=== PATIENT | male | born 1990 | race Caucasian/White ===

== ENCOUNTER 2017-01-11 14:28 | Emergency (ER) | payer OTHER ==
[~2017-01-11] VITALS: Ht 175.3 cm; Wt 100.0 kg
[2017-01-11 14:36] VITALS: TEMP 36.8; Ht 175.3 cm; Wt 100.0 kg
[2017-01-11] MEDS ORDERED: MULT-106 PO (15:04)
[2017-01-11] MEDS ORDERED: TRAZ100T29 PO (15:04)
[2017-01-11] MEDS ORDERED: SERT50TA PO (15:04)
[2017-01-11] MEDS ORDERED: HYDR-5688 PO (15:06)
[2017-01-11 15:33] VITALS: BP 129/69; PULSE 68; O2SAT 96
--- NOTE | 2017-01-12 08:35 | EMERGENCY ROOM VISIT NOTE ---
ED Visit Note First contact with patient: 14:41 Chief Complaint: I burned my left arm at work. History of Present Illness: Mr. Henriquez is a 26-year-old white male who ambulates into the ED complaining of a burn injury to the anterior aspect of the proximal left forearm. Patient reports 3 days ago he sustained a burn injury to the left forearm from hot oil from a fire strainer at work. He is expressing concerns about a possible infection. Currently he describes his pain as a burning sensation. He rates his discomfort 6/10. The pain is nonradiating. The pain worsens with palpation. He has not identified any alleviating factors related to the pain. He has been using [id number] medications without relief of his discomfort. He does report he has been cleaning his wound and applying antibiotic ointment. He denies any fevers, chills, sweats, increasing redness/swelling around the wound, red streaking, puslike drainage, shortness of breath, decreased appetite , nausea, vomiting, left upper extremity weakness/numbness/tingling. Review of Systems: As noted above in history of present illness. 5 body systems were reviewed and found to be negative as noted above. Past Medical History: Unspecified stomach disorder. Current Medications: Zoloft, trazodone, multivitamins. Allergies to Medications: Patient denies. Social History: Patient is currently employed; he feels safe in his home environment; he admits to tobacco use and denies alcohol use. Tetanus Immunization Status: Patient reports up-to-date. Physical Examination: Vital Signs: Date Time Temp Pulse Resp B/P (MAP) Pulse Ox O2 Delivery O2 Flow Rate FiO2 01/11/17 15:33 68 20 129/69 96 01/11/17 14:36 36.8 65 18 133/70 96 Room Air GENERAL: 26-year-old male in mild distress due to pain, nontoxic-appearing, afebrile and hemodynamically stable. NEUROLOGICAL: Awake, alert and oriented to person, place and time. Answering questions appropriately and following commands. SKIN: Warm, dry and pink. Left Forearm: On the anterior proximal aspect of the left forearm patient has a 4-5 cm round partial thickness burn. Patient does report he removed the piece of skin while cleaning the initial burn. The wound itself is slightly erythematous but not edematous. There is no local cellulitic changes. There is no lymphangitis. Less than 1% body surface area burn. THORAX: Lungs sounds are clear to auscultation and equal bilaterally with symmetrical chest wall. ABDOMEN: Flat, soft and nontender. Positive bowel sounds in all quadrants. LEFT UPPER EXTREMITY: No gross bony deformity. No tenderness in the shoulder, elbow, wrist or hand. Mild tenderness over his burn. Full range of motion in flexion and extension of the elbow, pronation and supination of forearm and flexion, extension and radial deviation of the wrist. Distal pulses present and capillary refill is brisk. He was able to distinguish light sensations through all dermatomes of the hand. ED Course: Patient is assessed as noted above. Patient's medication list was reviewed. Patient's wound was cleansed and bandaged with a sterile bacitracin dressing. Patient was educated about today's findings and instructed on his treatment plan ; he verbalizes understanding and agreement with this plan. Clinical Impression: Thermal burn left forearm. Work related injury. Disposition: Patient discharged home in stable condition accompanied by his mother; prior to departure he was reassessed and subjectively reported he was feeling better and rated his discomfort 4/10. Plan: Wound care, signs of infection and pain control were discussed with the patient ; patient was given a small prescription of [place], he was educated on appropriate narcotic use and his name was checked in the state database and no red flags were noted. Patient was encouraged to follow-up with Workmen's Compensation for recheck. Patient was encouraged return the ED for signs of infection, uncontrolled pain or any new/concerning symptoms.
== END 2017-01-11 15:41 | disposition home or self-care (01) ==
LOC: C.EDB 14:30 → C.EDD 15:41
DX: T22.012A Burn of unspecified degree of left forearm, initial encounter (principal); X10.2XXA Contact with fats and cooking oils, initial encounter; Y92.89 Other specified places as the place of occurrence of the external cause; Y99.0 Civilian activity done for income or pay; Z79.899 Other long term (current) drug therapy

== ENCOUNTER 2017-02-05 15:24 | Inpatient (IN) | payer OTHER ==
[~2017-02-05] VITALS: Ht 175.3 cm; Wt 100.2 kg
[~2017-02-05 15:24] MED LIST: HYDR-5688 PO; MULT-106 PO; SERT50TA PO; TRAZ100T29 PO
--- NOTE | 2017-02-05 15:54 | EMERGENCY ROOM VISIT NOTE ---
History Report prepared by Eloisa: Willow Flores Under the Supervision of: Dr. Chaka Kumar M.D. First contact with patient: 15:32 Chief Complaint: MENTAL HEALTH EVALUATION Stated Complaint: PANIC ATTACKS, ANXIETY, EMOTIONAL OUTBURSTS History of Present Illness The patient is a 26 year old male who presents to the Emergency Room with complaints of worsening mental health issues. He reports he has experienced a difficult past several months of "trying to get better". He admits to increased anxiety attacks, difficulty sleeping and emotional outbursts. He also admits to "passing suicidal thoughts" but states he has no clear plan. He denies any homicidal ideation. He follows with a Psychiatrist from the [facility] and currently takes Zoloft, Seroquel and Trazodone as needed. He last saw his Psychiatrist a few days ago, but states "a 1-hour session is not long enough". The patient currently lives with his Mother and states it's been stressful living with her and dealing with her issues as well as his own. He reports his only current medical problem is back pain. Source of History: patient Onset: [employer] Position: other (global) Quality: other (mental health issues) Timing: worsening Associated Symptoms: + back pain Review of Systems See HPI for pertinent positives & negatives. A total of 10 systems reviewed and were otherwise negative. Past Medical & Surgical Medical Problems: (1) Anxiety (2) Back pain (3) Depression Social History Smoking Status: Current Every Day Smoker Alcohol Use: occasionally Drug Use: none Marital Status: single Housing Status: lives with family Occupation Status: unemployed Current/Historical Medications Scheduled Multiple Vitamins W/ Minerals (One Daily Mens), 1 TAB PO DAILY Sertraline (Zoloft), 100 MG PO DAILY Trazodone Hcl (Trazodone), 50 MG PO HS Scheduled PRN Lorazepam (Ativan), 0.5 MG PO Q6H PRN for Anxiety/Agitation Allergies Coded Allergies: No Known Allergies (Unverified , 02/05/17) Physical Exam Vital Signs Date Time Temp Pulse Resp B/P (MAP) Pulse Ox O2 Delivery O2 Flow Rate FiO2 02/05/17 15:27 36.7 62 16 125/73 98 Room Air Physical Exam GENERAL: Patient is a healthy-appearing well-nourished HEAD: Normocephalic atraumatic EYES: Ocular movements intact pupils equal and react to light OROPHARYNX mucous membranes are moist no exudates present no erythema or edema present NECK: Supple no nuchal rigidity CHEST: Good equal expansion LUNGS: Clear and equal to auscultation CARDIAC: Normal S1 and S2 ABDOMEN: Soft nontender no guarding BACK: No CVA tenderness EXTREMITIES: No pain upon palpation normal muscle strength in all groups no clubbing cyanosis or edema NEURO: Patient is following commands is answering questions appropriately. Alert and oriented x3 Cranial Nerves 2-12 grossly intact Medical Decision & Procedures Laboratory Results 02/05/17 16:17 Red Blood Count 5.59, Mean Corpuscular Volume 85.2, Mean Corpuscular Hemoglobin 28.8, Mean Corpuscular Hemoglobin Concent 33.8, Mean Platelet Volume 9.5, Neutrophils (%) (Auto) 53.5, Lymphocytes (%) (Auto) 31.6, Monocytes (%) (Auto) 9.5, Eosinophils (%) (Auto) 4.3, Basophils (%) (Auto) 0.8, Neutrophils # (Auto) 4.13, Lymphocytes # (Auto) 2.44, Monocytes # (Auto) 0.73, Eosinophils # (Auto) 0.33, Basophils # (Auto) 0.06 02/05/17 16:17 Test 02/05/17 15:42 02/05/17 16:17 Urine Color YELLOW Urine Appearance CLEAR (CLEAR) Urine pH 7.0 (4.5-7.5) Urine Specific [place] 1.021 (1.000-1.030) Urine Protein NEG (NEG) Urine Glucose (UA) NEG (NEG) Urine Ketones NEG (NEG) Urine Occult Blood NEG (NEG) Urine Nitrite NEG (NEG) Urine Bilirubin NEG (NEG) Urine Urobilinogen NEG (NEG) Urine Leukocyte Esterase NEG (NEG) Urine Opiates Screen NEG (NEG) Urine Methadone, Qualitative NEG (NEG) Urine Barbiturates NEG (NEG) Urine Phencyclidine (PCP) Level NEG (NEG) Ur Amphetamine/Methamphetamine NEG (NEG) MDMA (Ecstasy) Screen POS (NEG) Urine Benzodiazepines Screen NEG (NEG) Urine Cocaine Metabolite NEG (NEG) Urine Marijuana (THC) POS (NEG) White Blood Count 7.71 K/uL (4.8-10.8) Red Blood Count 5.59 M/uL (4.7-6.1) Hemoglobin 16.1 g/dL (14.0-18.0) Hematocrit 47.6 % (42-52) Mean Corpuscular Volume 85.2 fL (80-100) Mean Corpuscular Hemoglobin 28.8 pg (25-34) Mean Corpuscular Hemoglobin Concent 33.8 g/dl (32-36) Platelet Count 208 K/uL (130-400) Mean Platelet Volume 9.5 fL (7.4-10.4) Neutrophils (%) (Auto) 53.5 % Lymphocytes (%) (Auto) 31.6 % Monocytes (%) (Auto) 9.5 % Eosinophils (%) (Auto) 4.3 % Basophils (%) (Auto) 0.8 % Neutrophils # (Auto) 4.13 K/uL (1.4-6.5) Lymphocytes # (Auto) 2.44 K/uL (1.2-3.4) Monocytes # (Auto) 0.73 K/uL (0.11-0.59) Eosinophils # (Auto) 0.33 K/uL (0-0.5) Basophils # (Auto) 0.06 K/uL (0-0.2) RDW Standard Deviation 41.8 fL (36.4-46.3) RDW Coefficient of Variation 13.4 % (11.5-14.5) Immature Granulocyte % (Auto) 0.3 % Immature Granulocyte # (Auto) 0.02 K/uL (0.00-0.02) Anion Gap 4.0 mmol/L (3-11) Est Creatinine Clear Calc Drug Dose 132.3 ml/min Estimated GFR () 121.3 Estimated GFR (Non- 104.7 BUN/Creatinine Ratio 10.5 (10-20) Calcium Level 8.5 mg/dl (8.5-10.1) Total Bilirubin 0.3 mg/dl (0.2-1) Direct Bilirubin < 0.1 mg/dl (0-0.2) Aspartate Amino Transf (AST/SGOT) 15 U/L (15-37) Alanine Aminotransferase (ALT/SGPT) 21 U/L (12-78) Alkaline Phosphatase 91 U/L (45-117) Total Protein 6.0 gm/dl (6.4-8.2) Albumin 3.4 gm/dl (3.4-5.0) Thyroid Stimulating Hormone (TSH) 0.609 uIu/ml (0.300-4.500) Ethyl Alcohol mg/dL < 3.0 mg/dl (0-3) Labs reviewed by ED physician. ED Course 1546: Past medical records reviewed. The patient was evaluated in room A8. A complete history and physical examination was performed. 1721: I discussed the patients case with [facility]. The patient is agreeable to stay. There is a male bed available upstairs in the mental health unit, [address] [place] [address]. The patient will be further evaluated. Medical Decision Prior records/ancillary studies reviewed. Triage Nursing notes reviewed. The patient's history was concerning for possible psychiatric disturbance. Differential diagnosis: Etiologies such as mood disorder, infection, hypoglycemia, electrolyte abnormalities, cardiac sources, intracerebral event, toxicologic, neurologic, as well as others were entertained. This is a 26-year-old male who presents emergency department with feeling depressed. The patient reports he feels suicidal at times although he does not have a specific plan. He has been following up with psychiatrist. He was medically cleared by me and evaluated by case management who felt that the patient warranted admission. He was discussed with [facility] and subsequently admitted. Medication Reconcilliation Current Medication List: was personally reviewed by me Blood Pressure Screening Patient's blood pressure: Normal blood pressure Blood pressure disposition: Did not require urgent referral Consults Time Called: 1719 Consulting Physician: [facility] Returned Call: [phone] I discussed the patients case with [facility]. The patient is agreeable to stay. There is a male bed available upstairs in the mental health unit, [address] [place] [address]. The patient will be further evaluated. Impression Primary Impression: Mood disorder Scribe Attestation The scribe's documentation has been prepared under my direction and personally reviewed by me in its entirety. I confirm that the note above accurately reflects all work, treatment, procedures, and medical decision making performed by me. Departure Information Dispostion Other (The patient is being evaluated by Viola Kimbrough [facility]) Referrals No Doctor, Assigned (PCP) Patient Instructions My [facility]
[2017-02-05 15:58] LABS: URINE APPEARANCE CLEAR (CLEAR); URINE BILIRUBIN NEG (NEG); URINE COLOR YELLOW; URINE NITRITE NEG (NEG); URINE SPECIFIC GRAVITY 1.021 (1.000-1.030); UROBILINOGEN NEG (NEG)
[2017-02-05 16:05] LABS: MANUAL MICROSCOPIC REQUIRED? NO; REVIEW REQ? NO
[2017-02-05 16:31] LABS: BENZODIAZEPINE, URINE NEG (NEG); COCAINE,URINE NEG (NEG); PHENCYCLIDINE, URINE NEG (NEG)
[2017-02-05 16:34] LABS: BASO % 0.8 %; BASO ABS # 0.06 K/uL (0-0.2); COMPLETE YES; EOS % 4.3 %; HEMATOCRIT 47.6 % (42-52); IG% 0.3 %; LYMPH % 31.6 %; LYMPH ABS # 2.44 K/uL (1.2-3.4); MEAN CELL VOLUME 85.2 fL (80-100); MEAN CORPUSCULAR HEMOGLOBIN 28.8 pg (25-34); MEAN CORPUSCULAR HGB CONC 33.8 g/dl (32-36); MEAN PLATELET VOLUME 9.5 fL (7.4-10.4); MONO % 9.5 %; NEUT % 53.5 %; PLATELET COUNT 208 K/uL (130-400); RED BLOOD COUNT 5.59 M/uL (4.7-6.1); WHITE BLOOD COUNT 7.71 K/uL (4.8-10.8)
[2017-02-05 16:54] LABS: ALT/SGPT 21 U/L (12-78); AST/SGOT 15 U/L (15-37); BLOOD UREA NITROGEN 10 mg/dl (7-18); BUN/CREATININE RATIO 10.5 (10-20); CALCIUM 8.5 mg/dl (8.5-10.1); CARBON DIOXIDE 31 mmol/L (21-32); CHLORIDE 108 mmol/L (98-107); CREATININE 0.99 mg/dl (0.60-1.40); GLUCOSE 103 mg/dl (70-99); POTASSIUM 4.3 mmol/L (3.5-5.1); SODIUM 143 mmol/L (136-145)
[2017-02-05 17:04] LABS: ALKALINE PHOSPHATASE 91 U/L (45-117); THYROID STIMULATING HORMONE 0.609 uIu/ml (0.300-4.500)
[2017-02-05] MEDS ORDERED: SERT-234 PO (18:06)
[2017-02-05] MEDS ORDERED: LORA-741 PO (18:06)
[2017-02-05 18:41] VITALS: O2SAT 99
[2017-02-05] MEDS ORDERED: NURSING VERBAL MED ORDER ONE ×2 (18:45→19:45)
[2017-02-05] MEDS ORDERED: ALUMINUM/MAGNESIUM SUSP 30 ML UDC PO PRN (19:00)
[2017-02-05] MEDS ORDERED: BISMUTH SUBSALICYLATE PER ML OMNICELL CHARGE PO PRN (19:00)
[2017-02-05] MEDS ORDERED: MAGNESIUM HYDROXIDE SUSP 30 ML UDC PO PRN (19:00)
[2017-02-05] MEDS ORDERED: hydrOXYzine HCL 25 MG TAB PO PRN (19:00)
[2017-02-05] MEDS ORDERED: SODIUM CHLORIDE 0.65% NA SOLN 45 ML (OCEAN) PRN (19:00)
[2017-02-05] MEDS ORDERED: ACETAMINOPHEN 325 MG TAB PO PRN (19:00)
[2017-02-05] MEDS ORDERED: LORAZEPAM 0.5 MG TAB PO PRN (19:00)
[2017-02-05] MEDS: NICOTINE POLACRILEX 2 MG GUM MT PRN (20:27)
[2017-02-05 20:50] VITALS: BP 125/67; PULSE 52; TEMP 37; Ht 175.3 cm; Wt 100.2 kg
[2017-02-05] MEDS ORDERED: TRAZODONE HCL 50 MG TAB PO SCH (21:00)
[2017-02-06 06:59] VITALS: BP_SYST 105; BP_SYST 106; BP_DIAS 63; PULSE 42; PULSE 48; TEMP 36.6
[2017-02-06] MEDS: NICOTINE 14 MG/24 HR TDSY TD SCH (08:20)
[2017-02-06] MEDS ORDERED: SERTRALINE HCL 100 MG TAB PO SCH (09:00)
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
[2017-02-06] MEDS ORDERED: TRAZODONE HCL 50 MG TAB PO PRN (22:00)
[2017-02-07 07:00] VITALS: BP_SYST 100; BP_SYST 102; BP_DIAS 56; BP_DIAS 58; PULSE 39; PULSE 47; TEMP 36.6
[2017-02-07] MEDS: MULTIVITAMIN TAB PO SCH (08:40)
[2017-02-07] MEDS: SERTRALINE HCL 50 MG TAB PO SCH (08:41)
[2017-02-07] MEDS: NICOTINE 14 MG/24 HR TDSY TD SCH ×2 (08:42→12:42)
--- NOTE | 2017-02-07 17:36 | Psychiatric Progress Notes ---
Progress Note Date of Service Feb 07, 2017. Chief Complaint "ok". Subjective Patient was seen & assessed interval progress reviewed with nursing. pt denied SI today. endorsed doing ok when around peers/staff but just as depressed when by himself today. pt denied hypomanic symptoms today. pt weary that might not have bipolar and indicated that he heard that lexapro was a good med while open to trial of lamictal for now. pt shared how he felt that Concerta helped him by motivated in the past and better attuned to things when he was on it but the s./e were bothersome but not overly bad. pt does admit that concentration issues come and go. pt sleep was impaired last night with significant insomnia and only 4 hours of sleep per staff, early and middle insomnia reported. pt felt that trazodone at 50mg was effective when he would not fight the med by trying to stay up. seroquel of various doses made him rather groggy in the morning but coffee helped him past it. He is engaging with peers and staff. appetite intact no psychotic features or paranoid thinking noted or described denied s/e to lamictal, headaches present but present prior, denied rash or coordination worsening or sore throat, fever symptoms or diarrhea Review of Systems Constitutional: No fever, No chills, No sweats, No weight loss, No weakness, No fatigue, No problem reported Respiratory: No cough, No sputum, No wheezing, No shortness of breath, No dyspnea on exertion, No dyspnea at rest, No hemoptysis, No problem reported Cardiovascular: No chest pain, No orthopnea, No PND, No edema, No claudication , No palpitations, No problem reported Musculoskeletal: + problem reported (back pain) Neurologic: + problem reported (headaches ) Psychiatric: + depression symptoms, + insomnia Sleep Information Total Hours of Sleep: 4.00 Meal Information Percent of Breakfast Consumed: 100 Percent of Lunch Consumed: 95 Percent of Dinner Consumed: 100 Mental Status Exam During interview pt is: alert and oriented, cooperative Appearance: appropriately dressed Eye contact is: good Motor behavior is: steady gait & station, no abnormal motor movements Speech: normal in rate, rhythm & volume Affect: depressed, constricted Mood is: depressed, anxious Thought process: goal directed, linear, logical Thought content: worthlessness Suicidal thought are: denied, Plan: denied, Intent: denied Homicidal thoughts are: denied Hallucinations: denies auditory, denies visual Cognition: language grossly intact Intelligence estimated to be: average Insight: fair Judgement: impaired Impression 26 yr old male with reported h/o depression who obtains care at the [facility] for psychiatry and therapy and obtains substance based treatment for a past DUI in Feb 2014 who moved [email or web address] in early November 2016 from [place] to obtain a fresh start after difficulties with divorce from his . Pt describes and exhibits depressive symptoms with mood lability and describes periods of hypomanic symptoms endorsed by pt as lasting up to a day but usually less lasting but easily flared up. other specified Bipolar d/o r/o Bipolar d/o nos cannabis use disorder nicotine use disorder r/o alcohol use disorder zoloft and trazodone, with recent h/o seroquel and ativan prn suicidal concerns but without actual plan Plan (1) Mood disorder 02/06 - mood lability and hypomanic symptoms consistent with other specified bipolar disorder disorder with probable mixed symptoms. r/o full bipolar II disorder - reviewed with pt presentation and formulation - wean zoloft, given possibility of discontinuation symptoms will lower zoloft first to 50mg qday, and aim to likely wean off zoloft over next few days - lamictal 25mg 1 po qday , aiming titrate up as appropriate,likely after 14 days at 25mg dosage, if tolerating, after review of r/b/a including SJS and rash concerns. -consider holding trazodone for now, with aim to use vistaril for insomnia instead, however pt weary of this, will lower trazodone to 25mg from 50mg given 25mg has been effective for him and reports as being much less groggy in am with 25mg dose, also converted trazodone to prn only, with encouraging vistaril prn doses for insomnia to be tired. (as less likely to add to mood lability) - reviewed how anxiety and mood reactivity and periods of issues with concentration likely to improve as treating primary mood symptoms, pt has interested in prn ativan but given presentation and cannabis abuse concerns and h/o impulsivity and DUI/ substance counseling will aim for vistaril prn for only prn med at this time, avoiding controlled substances 02/07 -continue lamictal at 24mg a day -weaning zoloft maintain at 50mg a day for now with expected weaning fully off zoloft over next few days -encourage trial of vistaril for insomnia with raising trazodone to back to 50mg hs prn as back up med for insomnia -family meeting with mother to be scheduled (2) Nicotine dependence - offered nicotine aptch and gum that pt has accepted but pt has taken off nicotine patch for some possible itching but plans to resume it as well. pt prefers to keep this order ongoing for now and will monitor, he has some completive aspects of quitting smoking since not able to smoke in the hospital, "some thoughts of telling people I quit smoking from this admission" pt shared how mother liked Chantix but pt does not views such medications as things that can eb effective and not interested in them at this time. Will continue to address during hospital course. (3) Cannabis abuse -encouraging abstinence, educating pt about how cannabis can worsen symptoms including concentration, motivation, mood, and motivation, and dependency risks pt already going to [facility] for outpt substance counseling (mandated) with pt not viewing himself as having substance use disorder concerns and precontemplative in terms of motivational stage in terms of changing this behavior. will continue to address during this hospital course Discharge / Aftercare Planning Primary Care Physician: Name: Dr. Jay?? Therapist: Name: Guillermina @ [facility] Inventory Assets Strengths: seeking help; complaint with treatment recommendations, working a job Needs: switch of medication to one more effective for him, clarification of dx Risk Factors Assessment Male: Yes : Yes /single/: Yes Higher / Fall in social status: Yes Health problems: No Mental Health Diagnoses: Yes Substance use disorders: Yes Previous attempt: No Previous psychiatric stay: No Smoker: Yes Protective Factors Assessment Employed: Yes Data Vital Signs Last 24 Hrs: Date Time Temp Pulse Resp B/P (MAP) Pulse Ox O2 Delivery O2 Flow Rate FiO2 02/07/17 07:00 36.6 39 16 102/58 47 100/56 Meds Administered Last 24 Hrs: Meds Administered (Past 24Hrs) Medications (Trade) Dose Ordered Sig/Romy Route Start Time Stop Time Status Last Admin Dose Admin Trazodone HCl (Desyrel Tab) 50 mg HS PO 02/05/17 21:00 02/06/17 15:19 DC 02/05/17 22:11 50 MG Sertraline HCl (Zoloft Tab) 100 mg DAILY PO 02/06/17 09:00 02/06/17 15:19 DC 02/06/17 08:20 100 MG Acetaminophen (Tylenol Tab) 650 mg Q4H PRN PO 02/05/17 19:00 03/07/17 18:59 02/07/17 12:45 650 MG Nicotine (Nicoderm Cq 14MG Patch) 1 patch QAM TD 02/06/17 09:00 03/08/17 08:59 02/07/17 12:42 1 PATCH Miscellaneous (Remove Nicoderm Patch) 1 ea HS N/A 02/06/17 22:00 03/08/17 21:59 02/06/17 21:34 1 EA Nicotine Polacrilex (Nicorette 2MG Gum) 1-2 Q2H PRN MT 02/05/17 19:45 03/07/17 19:44 02/05/17 20:27 2 PIECE Sertraline HCl (Zoloft Tab) 50 mg DAILY PO 02/07/17 09:00 03/08/17 08:59 02/07/17 08:41 50 MG Trazodone HCl (Desyrel Tab) 25 mg HS PRN PO 02/06/17 22:00 03/07/17 20:59 02/06/17 23:36 25 MG Lamotrigine (Lamictal Tab) 25 mg QAM PO 02/07/17 09:00 03/09/17 08:59 02/07/17 08:40 25 MG Lamotrigine (Lamictal Tab) 25 mg ONE ONCE PO 02/06/17 15:30 02/06/17 15:47 DC 02/06/17 20:40 25 MG Multivitamins (Multivitamin Tab) 1 tab QAM PO 02/07/17 09:00 03/09/17 08:59 02/07/17 08:40 1 TAB
[2017-02-07] MEDS: hydrOXYzine HCL 25 MG TAB PO PRN (23:26)
[2017-02-08 06:55] VITALS: BP_SYST 116; BP_SYST 132; BP_DIAS 70; BP_DIAS 72; PULSE 43; TEMP 36.7
[2017-02-08] MEDS: MULTIVITAMIN TAB PO SCH (08:40)
[2017-02-08] MEDS: SERTRALINE HCL 50 MG TAB PO SCH (08:40)
--- NOTE | 2017-02-08 13:27 | Psychiatric Progress Notes ---
Progress Note Date of Service Feb 08, 2017. Interval History Reees Henriquez is a 26-year-old male who currently lives with his mother in [place], [place], has a history of alcohol and cannabis abuse and mood disorder ( depression vs bipolar), who presented with SI and was admitted on a 201 voluntary commitment. Chief Complaint "She's trying to do too much for me". Subjective Patient was seen & assessed interval progress reviewed with Treatment Team. Staff report he is going to groups and laughing and joking with staff. He was started on lamotrigine here and is tolerating it well. He had a meeting with his mother today, and she informed him that he cannot return to live with her. Today, he states that his mood is "not that good," as he just came from a very difficult meeting with his mother. He initially focuses on all the things his mother does that he doesn't like, saying that she nags him and is always on his case. Multiple attempts were made to shift the conversation to his behaviors, but he continued to return to complaints about his mother. He does not believe his mother will really kick him out, stating that he thinks he could "make it work" living with her, as long as he was gone most of the time. He would eventually like to get his own place, but says "I admit I need help, and I'm not healthy enough to do that right now." He states that he is feeling more suicidal today, as he is now thinking that he might be homeless, but is able to contract for safety on the unit, stating that he would go to staff if he felt unsafe. He also admits to a lot of anger, stating that he has the urge to break something or "throw a chair in the activity room," but agrees to use healthy coping skills instead, saying "I'm not gonna actually do it." He says that he feels groups have been helpful, and that he would like to process things that happened in his childhood and poems that he's written while he is here. He feels he is "very insightful, another patient thought it was a counselor." He does think his mood had improved here, until his family meeting today. Sleep Information Total Hours of Sleep: 6.00 Meal Information Percent of Breakfast Consumed: 100 Percent of Lunch Consumed: 95 Percent of Dinner Consumed: 100 Mental Status Exam During interview pt is: alert and oriented, cooperative Appearance: appropriately dressed, appropriately groomed, other (overweight) Eye contact is: poor Motor behavior is: steady gait & station, no abnormal motor movements Speech: normal in rate, rhythm & volume Affect: depressed, irritable, angry, constricted Mood is: irritable, angry Thought process: goal directed, tangential, perseveration (on complaints about his mother) Thought content: preoccupation, worthlessness Suicidal thought are: present Homicidal thoughts are: denied Hallucinations: denies auditory, denies visual Cognition: language grossly intact Intelligence estimated to be: average Insight: fair Judgement: impaired Impression 26 yr old male with reported h/o depression who obtains care at the [facility] for [facility]ry and therapy and [facility] for substance based treatment after a DUI in Feb 2014, who moved to [place] in early November 2016 from [place] to obtain a fresh start after difficulties with divorce from his . Pt describes and exhibits depressive symptoms with mood lability and describes periods of hypomanic symptoms lasting up to a day but usually less, irritability , and grandiosity. His sertraline was decreased, and he was started on lamotrigine for mood stabilization. He had a meeting with his mother 02/08/2017 , and she stated he was not able to continue to live with her. other specified Bipolar d/o cannabis use disorder nicotine use disorder r/o alcohol use disorder zoloft and trazodone, with recent h/o seroquel and ativan prn Plan (1) Mood disorder 02/06 - mood lability and hypomanic symptoms consistent with other specified bipolar disorder disorder with probable mixed symptoms. r/o full bipolar II disorder - reviewed with pt presentation and formulation - wean zoloft, given possibility of discontinuation symptoms will lower zoloft first to 50mg qday, and aim to likely wean off zoloft over next few days - lamictal 25mg 1 po qday , aiming titrate up as appropriate,likely after 14 days at 25mg dosage, if tolerating, after review of r/b/a including SJS and rash concerns. -consider holding trazodone for now, with aim to use vistaril for insomnia instead, however pt weary of this, will lower trazodone to 25mg from 50mg given 25mg has been effective for him and reports as being much less groggy in am with 25mg dose, also converted trazodone to prn only, with encouraging vistaril prn doses for insomnia to be tired. (as less likely to add to mood lability) - reviewed how anxiety and mood reactivity and periods of issues with concentration likely to improve as treating primary mood symptoms, pt has interested in prn ativan but given presentation and cannabis abuse concerns and h/o impulsivity and DUI/ substance counseling will aim for vistaril prn for only prn med at this time, avoiding controlled substances 02/07 -continue lamictal at 25mg a day -weaning zoloft maintain at 50mg a day for now with expected weaning fully off zoloft over next few days -encourage trial of vistaril for insomnia with raising trazodone to back to 50mg hs prn as back up med for insomnia -family meeting with mother to be scheduled 02/08 - Continue lamotrigine standard dose titration, and lower dose of sertraline due to risk of destabilizing mood. - Difficult family meeting with mother; we'll need to explore other housing options. - [facility] Gu[facility]ermina at [facility]. Explore the possibility of a blended disease case manager rn, as he thinks he could benefit from increased support. (2) Nicotine dependence 02/07 - offered nicotine patch and gum. 02/08 - Is contemplating quitting smoking since not able to smoke in the hospital. Will continue to address during hospital course. (3) Cannabis abuse -encouraging abstinence, educating pt about how cannabis can worsen symptoms including concentration, motivation, mood, and motivation, and dependency risks pt already going to [facility] for outpt substance counseling (mandated) with pt not viewing himself as having substance use disorder concerns and precontemplative in terms of motivational stage in terms of changing this behavior. will continue to address during this hospital course Discharge / Aftercare Planning Primary Care Physician: Name: Dr. Jay?? Therapist: Name: Guillermina @ [facility] Visit Code E&M Code: 25976 Inventory Assets Strengths: seeking help; complaint with treatment recommendations, working a job Needs: switch of medication to one more effective for him, clarification of dx Risk Factors Assessment Male: Yes : Yes /single/: Yes Higher / Fall in social status: Yes Health problems: No Mental Health Diagnoses: Yes Substance use disorders: Yes Previous attempt: No Previous psychiatric stay: No Smoker: Yes Protective Factors Assessment Employed: Yes Data Vital Signs Last 24 Hrs: Date Time Temp Pulse Resp B/P (MAP) Pulse Ox O2 Delivery O2 Flow Rate FiO2 02/08/17 06:55 36.7 43 16 132/70 116/72 Meds Administered Last 24 Hrs: Meds Administered (Past 24Hrs) Medications (Trade) Dose Ordered Sig/Romy Route Start Time Stop Time Status Last Admin Dose Admin Miscellaneous (Remove Nicoderm Patch) 1 ea HS N/A 02/06/17 22:00 03/08/17 21:59 02/07/17 21:10 1 EA Sertraline HCl (Zoloft Tab) 50 mg DAILY PO 02/07/17 09:00 03/08/17 08:59 02/08/17 08:40 50 MG Trazodone HCl (Desyrel Tab) 25 mg HS PRN PO 02/06/17 22:00 03/07/17 20:59 02/06/17 23:36 25 MG Lamotrigine (Lamictal Tab) 25 mg QAM PO 02/07/17 09:00 03/09/17 08:59 02/08/17 08:40 25 MG Lamotrigine (Lamictal Tab) 25 mg ONE ONCE PO 02/06/17 15:30 02/06/17 15:47 DC 02/06/17 20:40 25 MG Multivitamins (Multivitamin Tab) 1 tab QAM PO 02/07/17 09:00 03/09/17 08:59 02/08/17 08:40 1 TAB
[2017-02-08] MEDS: NICOTINE POLACRILEX 2 MG GUM MT PRN ×2 (14:03→21:34)
[2017-02-08 22:07] VITALS: PULSE 55
[2017-02-08] MEDS: hydrOXYzine HCL 25 MG TAB PO PRN (23:27)
[2017-02-09 06:52] VITALS: BP_SYST 117; BP_SYST 118; BP_DIAS 69; BP_DIAS 70; PULSE 50; TEMP 36.8
[2017-02-09] MEDS: NICOTINE 14 MG/24 HR TDSY TD SCH ×2 (09:00→09:33)
[2017-02-09] MEDS: MULTIVITAMIN TAB PO SCH (09:33)
[2017-02-09] MEDS: SERTRALINE HCL 50 MG TAB PO SCH (09:33)
--- NOTE | 2017-02-09 09:34 | Psychiatric Progress Notes ---
Progress Note Date of Service Feb 09, 2017. Interval History Reese Henriquez is a 26-year-old male who currently lives with his mother in [place], [place], has a history of alcohol and cannabis abuse and mood disorder ( depression vs bipolar), who presented with SI and was admitted on a 201 voluntary commitment. Chief Complaint "Okay". Subjective Patient was seen & assessed interval progress reviewed with Nursing. Staff report he had a difficult meeting with his mother yesterday, as she says he does not accept responsibility for his behavior and act like an adolescent, is disrespectful and irresponsible, and that she is frustrated with him. He stated that his mother expects too much from him. Mother also stated that he came to stay with her after he was kicked out of his own apartment due to a restraining order. She also stated that he recently stole her clonazepam prescription. The patient was upset when she brought this up, saying she had no right to talk about it, and left the meeting for a few minutes. He claimed that he took the pills to help a friend in need, and not for himself. His mother filed a police report, as she wanted to get a new prescription, but did not want charges pressed. The patient was resistant to talking about his substance abuse history, although he admitted that he is in treatment at [facility] with Guillermina, and has missed multiple appointments and was almost terminated from services. He admitted that he does smoke marijuana, but refused to talk about other substance abuse. Mother stated that the patient will not be allowed to return to live with her, and was hopeful that he could be placed in the [facility]. The process to get to the [facility] was reviewed, and the patient was willing for a referral for a blended case management. Local fdc options were discussed, primarily [facility], as there are no other options currently. Use of the [facility] for transportation to appointments was also discussed. The patient attended groups, and rated himself a 2 out of 10 in community meeting. He requested Vistaril for sleep, and appeared to sleep well. Today, the patient states that his mood is improved from yesterday, and he is hoping that his mother will change her mind and allow him to return to her home. He has not spoken to her since the meeting yesterday, stating he "didn't want to think about it anymore." Although he had some suicidal thoughts yesterday after the meeting, they have not recurred yet today. Mood was labile and upset yesterday, but is more stable this morning, although still low. His goals for today and to work on his discharge plan, as he states "I want a good plan, don't want to end up back here." He is not sure what his options are if his mother will not allow him to return to her home, and did not follow up with contacting [facility]. He says he plans to call his mother today to see if he can return to her house, but when asked what he can tell her or what he can do to make this work, he lists multiple things that his mother needs to change. He blames his mother for his current situation, stating "it's just so hard to tell with her," "she's confusing me," "I don't know if she knows how to not due to much, she goes overboard with everything." He is not able to make suggestions about things that he could change in order to make the living situation work. He is hoping that he will be able to be discharged tomorrow, but admits that at this time, he does not have adequate supports or stability outside of the hospital for safety discharge. Sleep Information Total Hours of Sleep: 5.50 Meal Information Percent of Breakfast Consumed: 100 Percent of Lunch Consumed: 75 Percent of Dinner Consumed: 100 Mental Status Exam During interview pt is: alert and oriented, cooperative Appearance: appropriately dressed, appropriately groomed, other (overweight) Eye contact is: poor Motor behavior is: steady gait & station, no abnormal motor movements Speech: normal in rate, rhythm & volume Affect: depressed, constricted Mood is: depressed Thought process: goal directed, tangential, perseveration (on complaints about his mother) Thought content: preoccupation, worthlessness Suicidal thought are: denied Homicidal thoughts are: denied Hallucinations: denies auditory, denies visual Cognition: language grossly intact Intelligence estimated to be: average Insight: fair Judgement: impaired Impression 26 yr old male with reported h/o depression who [facility] and [facility] for substance based treatment after a DUI in Feb 2014, who moved to [facility] in early November 2016 from [place] to obtain a fresh start after difficulties with divorce from his . Pt describes and exhibits depressive symptoms with mood lability and describes periods of hypomanic symptoms lasting up to a day but usually less, irritability , and grandiosity. His sertraline was decreased, and he was started on lamotrigine for mood stabilization. He had a meeting with his mother 02/08/2017 , and she stated he was not able to continue to live with her. other specified Bipolar d/o cannabis use disorder nicotine use disorder r/o alcohol use disorder zoloft and trazodone, with recent h/o seroquel and ativan prn Plan (1) Mood disorder 02/06 - mood lability and hypomanic symptoms consistent with other specified bipolar disorder disorder with probable mixed symptoms. r/o full bipolar II disorder - reviewed with pt presentation and formulation - wean zoloft, given possibility of discontinuation symptoms will lower zoloft first to 50mg qday, and aim to likely wean off zoloft over next few days - lamictal 25mg 1 po qday , aiming titrate up as appropriate,likely after 14 days at 25mg dosage, if tolerating, after review of r/b/a including SJS and rash concerns. -consider holding trazodone for now, with aim to use vistaril for insomnia instead, however pt weary of this, will lower trazodone to 25mg from 50mg given 25mg has been effective for him and reports as being much less groggy in am with 25mg dose, also converted trazodone to prn only, with encouraging vistaril prn doses for insomnia to be tired. (as less likely to add to mood lability) - reviewed how anxiety and mood reactivity and periods of issues with concentration likely to improve as treating primary mood symptoms, pt has interested in prn ativan but given presentation and cannabis abuse concerns and h/o impulsivity and DUI/ substance counseling will aim for vistaril prn for only prn med at this time, avoiding controlled substances 02/07 -continue lamictal at 25mg a day -weaning zoloft maintain at 50mg a day for now with expected weaning fully off zoloft over next few days -encourage trial of vistaril for insomnia with raising trazodone to back to 50mg hs prn as back up med for insomnia -family meeting with mother to be scheduled 02/08 - Continue lamotrigine standard dose titration, and lower dose of sertraline due to risk of destabilizing mood. - Difficult family meeting with mother; we'll need to explore other housing options. - Coordinate with outpatient providers, including [facility] and with therapist Guillermina at [facility]. Explore the possibility of a blended case management associate, as he thinks he could benefit from increased support. 02/09 - [facility] for [facility]. - Patient to contact mother today regarding housing. He was also encouraged to follow up with contacting [facility] in case he cannot return to mother's home and would need to utilize the fdc. - Weaning to coordinate with his outpatient providers, including his psychiatrist through the [facility], and his therapist Guillermina at [facility]. (2) Cannabis abuse -encouraging abstinence, educating pt about how cannabis can worsen symptoms including concentration, motivation, mood, and motivation, and dependency risks pt already going to [facility] for outpt substance counseling (mandated) with pt not viewing himself as having substance use disorder concerns and precontemplative in terms of motivational stage in terms of changing this behavior. will continue to address during this hospital course 02/09 - Patient's mother states that he recently stole her clonazepam prescription. He also has a history of DUI, and refuses to discuss his substance abuse. Would recommend he not be prescribed controlled substances due to the risk of abuse, misuse, diversion, and negative outcomes. (3) Nicotine dependence 02/07 - offered nicotine patch and gum. 02/08 - Is contemplating quitting smoking since not able to smoke in the hospital. Will continue to address during hospital course. Discharge / Aftercare Planning Primary Care Physician: Name: Dr. Jay?? Therapist: Name: Guillermina @ [facility] Visit Code E&M Code: 31534 Inventory Assets Strengths: seeking help; complaint with treatment recommendations, working a job Needs: switch of medication to one more effective for him, clarification of dx Risk Factors Assessment Male: Yes : Yes /single/: Yes Higher / Fall in social status: Yes Health problems: No Mental Health Diagnoses: Yes Substance use disorders: Yes Previous attempt: No Previous psychiatric stay: No Smoker: Yes Protective Factors Assessment Employed: Yes Data Vital Signs Last 24 Hrs: Date Time Temp Pulse Resp B/P (MAP) Pulse Ox O2 Delivery O2 Flow Rate FiO2 02/09/17 06:52 36.8 50 16 118/69 50 117/70 02/08/17 22:07 55
[2017-02-09] MEDS: NICOTINE POLACRILEX 2 MG GUM MT PRN ×2 (16:04→20:39)
[2017-02-09] MEDS: hydrOXYzine HCL 25 MG TAB PO PRN (22:25)
[2017-02-10 06:59] VITALS: BP_SYST 110; BP_SYST 125; BP_DIAS 67; BP_DIAS 71; PULSE 42; PULSE 47; TEMP 36.4
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
[2017-02-10] MEDS ORDERED: ATR25 PO (09:30)
[2017-02-10] MEDS ORDERED: SERT-234 PO (09:30)
[2017-02-10] MEDS ORDERED: NICO14DI5 TD (09:30)
[2017-02-10] MEDS: SERTRALINE HCL 50 MG TAB PO SCH (09:57)
[2017-02-10] MEDS: MULTIVITAMIN TAB PO SCH (09:57)
[2017-02-10] MEDS: NICOTINE 14 MG/24 HR TDSY TD SCH (09:58)
[2017-02-10] MEDS ORDERED: LMC25 PO (10:26)
[2017-02-10] MEDS ORDERED: DESTROY THIS MEDICATION ONE (11:15)
[2017-02-10] MEDS: NICOTINE POLACRILEX 2 MG GUM MT PRN (12:01)
== END 2017-02-10 14:10 | disposition home or self-care (01) | DRG 881 ==
LOC: C.EDB 15:26 → C.MHU 18:36 → ENRESERV 19:03
PROVIDERS: ADMIT Psychiatry & Neurology Psychiatry; ATTEND Psychiatry & Neurology Psychiatry
DX: F32.9 Major depressive disorder, single episode, unspecified (principal); F41.9 Anxiety disorder, unspecified; F17.200 Nicotine dependence, unspecified, uncomplicated; F12.10 Cannabis abuse, uncomplicated; F60.89 Other specific personality disorders

== ENCOUNTER 2017-12-31 10:43 | Emergency (ER) | payer OTHER ==
[~2017-12-31] VITALS: Ht 177.8 cm; Wt 99.3 kg
[~2017-12-31 10:43] MED LIST changes: +ATR25 PO; -HYDR-5688 PO; +LMC25 PO; +NICO14DI5 TD; +SERT-234 PO; -SERT50TA PO; -TRAZ100T29 PO
[2017-12-31 10:48] VITALS: TEMP 36.7; Ht 177.8 cm; Wt 99.3 kg
[2017-12-31] MEDS ORDERED: BUPRTAB PO (11:14)
[2017-12-31] MEDS ORDERED: CHN/1 PO (11:14)
[2017-12-31] MEDS ORDERED: BUPRTAB51 PO (11:14)
[2017-12-31] MEDS ORDERED: ZNT/150 PO (11:14)
--- NOTE | 2017-12-31 11:44 | DIAGNOSTIC IMAGING REPORT ---
HEAD WITHOUT CONTRAST (CT) CLINICAL HISTORY: 27 years-old Male presenting with EVALUATE FOR PSYCH CLEARANCE. TECHNIQUE: Multidetector CT imaging of the head was performed without the use of intravenous contrast. IV contrast: None. A dose lowering technique was used consistent with the principles of ALARA (as low as reasonably achievable). COMPARISON: None. CT DOSE (mGy.cm): The estimated cumulative dose is 601.98 mGy.cm. FINDINGS: Infection Control Practitioner topogram: Unremarkable. Ventricles and sulci normal in size. Brain parenchyma normal in appearance with preserved jaramillo-white differentiation. No mass effect or midline shift. No hemorrhage or acute territorial infarct. No extra-axial fluid collection. Paranasal sinuses and mastoid air cells clear. Calvarium intact. IMPRESSION: 1. No acute intracranial abnormality. Electronically signed by: Maik Sexton M.D. 12/31/2017 11:43 AM Dictated Date/Time: 12/31/2017 11:41 AM
[2017-12-31 11:53] LABS: HEMATOCRIT 48.2 % (42-52); HEMOGLOBIN 17.1 g/dL (14.0-18.0); MEAN CELL VOLUME 78.6 fL (80-100); MEAN CORPUSCULAR HEMOGLOBIN 27.9 pg (25-34); MEAN CORPUSCULAR HGB CONC 35.5 g/dl (32-36); MEAN PLATELET VOLUME 9.8 fL (7.4-10.4); PLATELET COUNT 228 K/uL (130-400); RED CELL DISTRIBUTION WIDTH CV 13.9 % (11.5-14.5); RED CELL DISTRIBUTION WIDTH SD 39.2 fL (36.4-46.3); WHITE BLOOD COUNT 8.05 K/uL (4.8-10.8)
[2017-12-31 12:17] LABS: ALBUMIN 3.8 gm/dl (3.4-5.0); CREATININE 0.91 mg/dl (0.60-1.40); POTASSIUM 3.7 mmol/L (3.5-5.1); TOTAL PROTEIN 6.7 gm/dl (6.4-8.2)
--- NOTE | 2017-12-31 13:32 | EMERGENCY ROOM VISIT NOTE ---
History Report prepared by Eloisa: Ness Membreno Under the Supervision of: Dr. Chris Nails M.D. First contact with patient: 11:00 Chief Complaint: OTHER COMPLAINT Stated Complaint: CHECK IN History of Present Illness The patient is a 27 year old male who presents to the Emergency Room with a referral from his therapist. The patient states that he does not remember last weekend. The patient states that he thinks he hit his head and had a headache and a lump because of this, but the patient does not recall anyone telling him he fell recently. The patient states that he has not eaten today and is hungry. Per nursing staff, his therapist is from the [facility] and states that the patient has a history of borderline personality disorder. Per the patient's therapist, in the past week, the patient has been exhibiting psychosis and paranoia. The patient's therapist states that he patient does not have any suicidal ideations or homicidal ideations. Per the patient's therapist , the patient has been taking Chantix but stopped taking this three days prior to arrival. According to the therapist, the patient has two prior hospitalizations, one of which was at [facility] and the other was in [place]. Per the therapist, the patient is not agitated. History is limited due to mental state. Source of History: patient, treating provider (therapist ), nursing staff History Limited By: other (mental state) Review of Systems The history is limited due to mental state. Past Medical & Surgical Medical Problems: (1) Anxiety (2) Back pain (3) Cannabis abuse (4) Cluster B personality disorder (5) Depression (6) Nicotine dependence Social History Smoking Status: Current Every Day Smoker Alcohol Use: occasionally Drug Use: none Marital Status: single Housing Status: lives with family Occupation Status: unemployed Current/Historical Medications Scheduled Bupropion Hcl (Wellbutrin Xl), 150 MG PO QAM Bupropion Hcl (Wellbutrin Xl), 300 MG PO DAILY Ranitidine Hcl (Zantac), 150 MG PO BID Varenicline (Chantix), 1 MG PO DIRECTED Scheduled PRN Hydroxyzine HCl (Hydroxyzine HCl), 50 MG PO HSZ PRN for Insomnia Allergies Coded Allergies: No Known Allergies (Unverified , 12/31/17) Physical Exam Vital Signs Date Time Temp Pulse Resp B/P (MAP) Pulse Ox O2 Delivery O2 Flow Rate FiO2 12/31/17 12:39 72 16 149/65 100 Room Air 12/31/17 10:48 36.7 84 17 142/82 97 Room Air Physical Exam GENERAL: Patient is in no acute distress. HEENT: No acute trauma, normocephalic atraumatic, mucous membranes moist, no nasal congestion, no scleral icterus. Pupils equal and reactive to light. NECK: No stridor, no adenopathy, no meningismus, trachea is midline. LUNGS: Clear to auscultation bilaterally, no wheeze, no rhonchi, breath sounds equal. HEART: Without murmurs gallops or rubs, regular rate and rhythm. ABDOMEN: Soft, nontender, bowel sounds positive, no hernias, no peritonitis. EXTREMITIES: No cyanosis or edema, full range of motion of all the joints without pain or difficulty, no signs for acute trauma. NEUROLOGIC: Oriented x 3, no acute motor or sensory deficits, no focal weakness. No cerebellar dysfunction. SKIN: No rash, no jaundice, no diaphoresis. PSYCH: Cooperative. Does not answer a lot of questions. Seems unwilling to talk , no response when asked if feeling suicidal. Medical Decision & Procedures ER Provider Diagnostic Interpretation: Radiology results as stated below per my review and radiologist interpretation: HEAD WITHOUT CONTRAST (CT) CLINICAL HISTORY: 27 years-old Male presenting with EVALUATE FOR PSYCH CLEARANCE. TECHNIQUE: Multidetector CT imaging of the head was performed without the use of intravenous contrast. IV contrast: None. A dose lowering technique was used consistent with the principles of ALARA (as low as reasonably achievable). COMPARISON: None. CT DOSE (mGy.cm): The estimated cumulative dose is 601.98 mGy.cm. 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 Ventricles and sulci normal in size. Brain parenchyma normal in appearance with preserved jaramillo-white differentiation. No mass effect or midline shift. No hemorrhage or acute territorial infarct. No extra-axial fluid collection. Paranasal sinuses and mastoid air cells clear. Calvarium intact. IMPRESSION: 1. No acute intracranial abnormality. Electronically signed by: Maik Sexton M.D. 12/31/2017 11:43 AM Dictated Date/Time: 12/31/2017 11:41 AM Laboratory Results 12/31/17 11:30 12/31/17 11:30 Test 12/31/17 11:18 12/31/17 11:30 12/31/17 17:00 Urine Opiates Screen NEG (NEG) Urine Methadone, Qualitative NEG (NEG) Urine Barbiturates NEG (NEG) Urine Phencyclidine (PCP) Level NEG (NEG) Ur Amphetamine/Methamphetamine NEG (NEG) MDMA (Ecstasy) Screen POS (NEG) Urine Benzodiazepines Screen NEG (NEG) Urine Cocaine Metabolite NEG (NEG) Urine Marijuana (THC) POS (NEG) Red Blood Count 6.13 M/uL (4.7-6.1) Mean Corpuscular Volume 78.6 fL (80-100) Mean Corpuscular Hemoglobin 27.9 pg (25-34) Mean Corpuscular Hemoglobin Concent 35.5 g/dl (32-36) RDW Standard Deviation 39.2 fL (36.4-46.3) RDW Coefficient of Variation 13.9 % (11.5-14.5) Mean Platelet Volume 9.8 fL (7.4-10.4) Anion Gap 10.0 mmol/L (3-11) Est Creatinine Clear Calc Drug Dose 144.0 ml/min Estimated GFR () 133.4 Estimated GFR (Non- 115.1 BUN/Creatinine Ratio 11.1 (10-20) Calcium Level 9.0 mg/dl (8.5-10.1) Total Bilirubin 0.7 mg/dl (0.2-1) Aspartate Amino Transf (AST/SGOT) 161 U/L (15-37) Alanine Aminotransferase (ALT/SGPT) 63 U/L (12-78) Alkaline Phosphatase 77 U/L (45-117) Total Protein 6.7 gm/dl (6.4-8.2) Albumin 3.8 gm/dl (3.4-5.0) Globulin 2.9 gm/dl (2.5-4.0) Albumin/Globulin Ratio 1.3 (0.9-2) Thyroid Stimulating Hormone (TSH) 0.707 uIu/ml (0.300-4.500) Salicylates Level < 1.7 mg/dl (2.8-20) Acetaminophen Level < 2 ug/ml (10-30) Ethyl Alcohol mg/dL < 3.0 mg/dl (0-3) Urine Color YELLOW Urine Appearance CLOUDY (CLEAR) Urine pH 6.0 (4.5-7.5) Urine Specific [place] 1.018 (1.000-1.030) Urine Protein NEG (NEG) Urine Glucose (UA) NEG (NEG) Urine Ketones TRACE (NEG) Urine Occult Blood NEG (NEG) Urine Nitrite NEG (NEG) Urine Bilirubin NEG (NEG) Urine Urobilinogen NEG (NEG) Urine Leukocyte Esterase NEG (NEG) Urine WBC (Auto) 1-5 /hpf (0-5) Urine RBC (Auto) 0-4 /hpf (0-4) Urine Hyaline Casts (Auto) 0 /lpf (0-5) Urine Epithelial Cells (Auto) 0-5 /lpf (0-5) Urine Bacteria (Auto) NEG (NEG) Laboratory results reviewed by me. ED Course 1101: The patient was evaluated in room A7. A complete history and physical exam was performed. 1222: Bri got ahold of the patient's therapist. The therapist states that the patient has been hearing voices, has been paranoid that they are tapping his phone, and thinks the songs on the radio are about him. 1317: Pursuing involuntary 302 admission. 1737: The patient is no longer a 302 candidate and we are pursuing a voluntary psychiatric admission. 1806: The patient was accepted by [facility] as voluntary admission. Medical Decision Possible differential diagnoses include: Psychosis, medication reaction, drug and alcohol abuse, intracranial bleeding, head injury, concussion, and thyroid disorder. There is no leukocytosis or worrisome anemia. No significant electrolyte abnormality, kidney failure or hepatitis. The patient appears to be in a euthyroid state. Brain CT shows no acute bleed or mass-effect. Urinalysis does not show infection. Aspirin, Tylenol and alcohol levels were undetectable. Urine tox shows ecstasy and marijuana. The ecstasy positive finding may be from his Wellbutrin use. The patient presents cooperative. He initially was not willing to stay in the hospital. He was demonstrating some bizarre behavior, he appeared psychotic. His therapist was contacted and apparently, he has been hearing voices and has been paranoid. A 302 involuntary petition was initiated, however, the patient then decided to sign into the hospital voluntarily. A bed search was performed, [facility] has accepted the patient. The transfer paperwork was completed. Patient has been cooperative during his stay, he is resting comfortably. Medication Reconcilliation Current Medication List: was personally reviewed by me Blood Pressure Screening Patient's blood pressure: Elevated blood pressure Blood pressure disposition: Elevated BP felt to be situational Impression Primary Impression: Psychosis Scribe Attestation The scribe's documentation has been prepared under my direction and personally reviewed by me in its entirety. I confirm that the note above accurately reflects all work, treatment, procedures, and medical decision making performed by me. Departure Information Dispostion [facility] ([facility]) Referrals No Doctor, Assigned (PCP) Patient Instructions My [facility]
[2017-12-31 20:55] VITALS: BP 196/87; PULSE 92; O2SAT 97
== END 2017-12-31 22:04 ==
LOC: C.EDB 10:46 → C.EDA 22:04
DX: F29 Unspecified psychosis not due to a substance or known physiological condition (principal); F41.9 Anxiety disorder, unspecified; F32.9 Major depressive disorder, single episode, unspecified; F17.210 Nicotine dependence, cigarettes, uncomplicated; Z79.899 Other long term (current) drug therapy